=== PATIENT | male | born 1950 | race Caucasian/White ===

== ENCOUNTER 2023-12-18 14:01 | Emergency (ER) | payer MEDICARE, OTHER, SELFPAY ==
[2023-12-18 14:04] VITALS: BP 125/84
[2023-12-18] MEDS: ADACEL 0.5 ML IM (14:58)
--- NOTE | 2023-12-18 15:00 | ED.GENMED ---
History of Present Illness
General
Chief Complaint: Skin Surface Trauma
Source: patient
Time Seen by Provider: 12/18/23 14:44
Travel History
Have you had any contact with someone who has COVID-19?: No
Do you have any symptoms of coronavirus? Fever > 100 degrees, chills, cough, shortness of breath, sore throat, loss of taste or smell, muscle aches, or headache?: No
History of Present Illness
History of Present Illness:
73-year-old male presents to the emergency room for evaluation of an injury to his left elbow. Patient states he was trimming a tree branch when it came back at him striking him in the arm. He noted significant bleeding and promptly came to the
emergency room. He has no limitation in range of motion of the left arm. No other injuries. He does not take anticoagulants.
Past History
Past History
ED Past Medical History: Hypercholesterolemia
ED Past Surgical History: Orthopedic
Social History
Tobacco: Non-smoker
Alcohol: None
Drug: None
Living: with family
Employment: Employed
Phy Exam
Physical Exam
Physical Exam:
General: Awake, Alert, Oriented X3. No acute distress.
Vitals: unremarkable
Head: Atraumatic
Eyes: Pupils equal, EOMI
Neck: Trachea midline
Neuro: Nonfocal
Skin: Warm, dry, no rash
Extremities: pulses equal b/l, no edema. Large abrasion/skin avulsion noted left elbow. No suturable laceration.
Course
Orders/Labs/Results
Orders:
Orders
12/18/23 14:51
Tetanus/Diphth/Acelpertussis [Adacel] 0.5 ml IM .ONCE ONE
Vital Signs
Initial and Last Documented VS:
Initial Vital Signs
Temp Pulse Resp BP Pulse Ox
98.2 F 85 18 125/84 96
12/18/23 14:04 12/18/23 14:04 12/18/23 14:04 12/18/23 14:04 12/18/23 14:04
Last Documented Vital Signs
Temp Pulse Resp BP Pulse Ox
98.2 F 85 18 125/84 96
12/18/23 14:04 12/18/23 14:04 12/18/23 14:04 12/18/23 14:04 12/18/23 14:04
MDM/Problems Addressed
Differential Diagnosis Includes:
Abrasion, skin tear, laceration
MDM/Problems Addressed:
Patient arrives with a that is not amendable to suturing. Wound care provided. Tetanus updated.
*Pulse Oximetry
Patient hypoxic: no
*Critical Care Note
Total Time (30-74mins, 75-104mins- exclusive of procedures): Not Applicable
ED Attending Note
-
Portions of this chart may have been created with voice recognition software.� Occasional wrong word or��sound alike� substitutions may have occurred due to the inherent limitations of voice recognition software.
Discharge Plan
Departure
Patient Disposition: Home (Routine Discharge)
Date of Disposition: 12/18/23
Time of Disposition: 15:01
Patient with high blood pressure during this ER visit?: No
Condition: Good
Discharge Problem:
Skin tear of left upper extremity
Instructions: Wound Care (DC)
Prescriptions:
No Action
atorvastatin 10 mg Tablet
10 mg PO QPM
Referrals:
Diaz Mariscal I., DO [Family Provider] -
[facility] [[facility]] -
Interventions
Interventions:
*General Assessment Last Done: 12/18/23 14:04
*ED COVID-19 Vaccine History Last Done: 12/18/23 14:04
*Nursing Disposition Last Done: 12/18/23 15:11
ED-Skin Assessment Last Done: 12/18/23 15:10
Discharge Date and Time
Discharge Date/Time: 12/18/23 15:11
Print Language: NIUEAN
== END 2023-12-18 15:11 | disposition home or self-care (01) ==
LOC: EMR 14:01
PROVIDERS: EMERGENCY PHYSICIAN Emergency Medicine; FAMILY PHYSICIAN Internal Medicine
DX: S41.112A Laceration without foreign body of left upper arm, initial encounter (principal); W20.8XXA Other cause of strike by thrown, projected or falling object, initial encounter; Y93.H2 Activity, gardening and landscaping; Z23 Encounter for immunization; E78.00 Pure hypercholesterolemia, unspecified
CPT/HCPCS: 99282; 90471; 90715

== ENCOUNTER → 2024-04-17 13:13 | Outpatient (REF) | payer MEDICARE, OTHER, SELFPAY ==
[2024-04-17 16:08] LABS: ALT (SGPT) 26 U/L (0-50); AST (SGOT) 27 U/L (17-59); Albumin 4.5 g/dl (3.5-5.0); Alkaline Phosphatase 55 U/L (38-126); Blood Urea Nitrogen 24 mg/dl (9-20); Calcium 9.5 mg/dl (8.4-10.2); Carbon Dioxide 28 mmol/L (22-30); Chloride 103 mmol/L (98-107); Glucose 77 mg/dl (70-99); Potassium 4.8 mmol/L (3.5-5.1); Sodium 141 mmol/L (135-145); Total Bilirubin 0.4 mg/dl (0.2-1.3); Total Protein 6.6 g/dl (6.3-8.2); eGFR > 60.00
[2024-04-18 08:05] LABS: Glycohemoglobin (HgbA1c) 5.4 % (4.0-5.6)
== END ==
LOC: HWRAD 13:13
PROVIDERS: ATTENDING PHYSICIAN Internal Medicine
DX: R35.0 Frequency of micturition (principal); R39.9 Unspecified symptoms and signs involving the genitourinary system; R73.9 Hyperglycemia, unspecified
CPT/HCPCS: 36415; 76770; 80053; 83036